=== PATIENT | male | born 1965 | race Caucasian/White ===

== ENCOUNTER 2019-11-03 20:00 | Outpatient (CLI) | payer OTHER, SELFPAY | END 2019-11-03 20:01 | disposition home or self-care (01) | LOC: SLEEP 11-04 08:57 | PROVIDERS: Family Provider Family Medicine; PCP Family Medicine; Visit Provider Family Medicine | DX: G47.30 Sleep apnea, unspecified (principal) | CPT/HCPCS: 95810; 95811 ==

== ENCOUNTER 2020-04-03 08:50 | Emergency (ER) | payer OTHER, SELFPAY ==
[2020-04-03 08:53] VITALS: BP 156/96; PULSE 95; RESP 18; TEMP 37.4; O2SAT 95; BMI 33.3
--- NOTE | 2020-04-03 09:03 | XR_ITS ---
WS: [id number] CHEST XRAY TECHNIQUE: Portable chest. CLINICAL INFORMATION: fever COMPARISON: FINDINGS: Heart: Normal cardiac silhouette. Lungs: Lungs are clear. No consolidation or pleural effusion. Bones: Postoperative changes lower cervical spine. XR/XR chest 1V portable [id number] IMPRESSION: No acute chest findings
[2020-04-03 09:06] VITALS: BP 165/106; PULSE 95; RESP 18; O2SAT 97
--- NOTE | 2020-04-03 09:13 | ED_ITS ---
HPI - Fever General: Chief Complaint: Fever Stated Complaint: Chills/body aches Time Seen by Provider: 04/03/20 09:06 History of Present Illness: HPI Narrative: Patient is a 54-year-old male who comes to the ED with body aches and chills. Symptoms started today when he woke up. Patient works at [email or web address] and states that they had a couple positive COVID-19 cases, but patient is unsure if he is had any known contact with those positive patients. Denies fever, chest pain, shortness of breath, cough, sore throat, ear pain, nasal drainage/congestion, abdominal pain, nausea/vomiting, bladder or bowel symptoms. Associated symptoms: Reports chills; Deny abdominal pain, flank pain, chest pain, diarrhea, dysuria, headache(s), nasal congestion, nausea or vomiting Review of Systems Const: Reports: chills and body aches; Denies: fever(s) or fatigue Eyes: Denies: change in vision or eye discomfort ENMT: Denies: throat pain, odynophagia, ear or mastoid pain, nasal discharge or nasal congestion Card: Denies: chest pain, palpitations, edema, swelling of feet/ankles, dyspnea on exertion or orthopnea Resp: Denies: dyspnea, productive cough or non-productive cough GI: Denies: abdominal pain, nausea, vomiting, diarrhea, constipation or hematochezia : Denies: flank pain, difficulty urinating, dysuria or hematuria Musc: Denies: neck pain, back pain or extremity swelling Skin/Breast: Denies: rash or new lesions Neuro: Denies: headache(s), numbness in extremities or weakness in extremities Physical Exam Const: COMMON NORMALS: no acute distress, patient oriented x3, healthy appearing and alert GENERAL APPEARANCE: cooperative and comfortable HENMT: COMMON NORMALS: normocephalic HEAD & SCALP: normocephalic MOUTH: Normal oral and palatal mucosa present THROAT: posterior oropharynx normal and uvula midline Neck/C-Spine: COMMON NORMALS: supple GENERAL: Yes normal visual inspection Resp: COMMON NORMALS: normal respiratory effort, No retractions, No use of accessory muscles and clear to auscultation bilaterally AUSCULTATION: clear to auscultation bilaterally Cardio: COMMON NORMALS: regular rate, regular rhythm, S1 normal heart sound present, S2 normal heart sound present, No gallops present (Cardio), No clicks present (Cardio), No murmurs present (Cardio) and Peripheral pulses 2+ throughout RATE: regular rate RHYTHM: regular rhythm HEART SOUNDS: S1 normal heart sound present and S2 normal heart sound present PERIPHERAL PULSES: Peripheral pulses 2+ throughout GI: COMMON NORMALS: Normal to inspection, nondistended, normoactive bowel sounds present, Soft to palpation, non-tender and no masses PALPATION: Yes Soft to palpation : COMMON NORMALS: Yes no CVA tenderness BLADDER/KIDNEY EXAM: Yes no CVA tenderness Back/Pelvis: COMMON NORMALS: no CVA tenderness Extremity: COMMON NORMALS: normal to inspection and no pedal edema Neuro: COMMON NORMALS: patient oriented x3 and moves all extremities SENSORIUM/ORIENTATION: Yes alert Skin: COMMON NORMALS: no rashes or lesions noted GENERAL SKIN EXAM: no r ashes or lesions noted and dry skin Course Vital Signs: Vital signs: Vital Signs Temperature 99.4 F 04/03/20 08:53 Pulse Rate 95 04/03/20 09:06 Respiratory Rate 18 04/03/20 09:06 Blood Pressure 165/106 04/03/20 09:06 Pulse Oximetry 97 04/03/20 09:06 MDM - Fever MDM Narrative: Medical decision making narrative: Patient is a 54-year-old male comes to the ED with body aches and chills. Patient works in [email or web address] and states that there have been some positive COVID cases there and he is unsure if he has had contact with any of them. Symptoms started this morning. Denies any cough, shortness of breath, sore throat, nasal drainage/congestion, ear pain, nausea vomiting, diarrhea. COVID testing was performed and the results ar e pending. Chest x-ray was normal showing no acute findings. Patient was discharged and told to self quarantine for the next 14 days, pending COVID-19 results. I told him that the hospital should be calling him in the next 3 to 4 days with COVID-19 test results and if he does not hear from the hospital in about 4 to 5 days he should call [facility] to inquire about testing results. Drink plenty of fluids and take Tylenol for fever. Follow-up with PCP in 14 days for reevaluation. Return to ED if symptoms worsen. Patient understood and agreed with plan. Lab Data: Attestation: I reviewed the patient's lab results. Imaging Data^: CXR: Attestation: I personally reviewed and interpreted this imaging study as follows: Radiologist's impression: [facility] [address] [place] [address] XRay Report Signed Patient: Abimael Ryan Unit #: [id number] : [id number] 97 Age/Sex: 54 / M ADM Date: 04/03/20 Loc: ER Room/Bed: Attending Dr: Ordering Provider/Ordering MD: Jair Lopez MD Date of Service: 04/03/20 Procedure(s): XR chest 1V portable [id number] Accession Number(s): [id number] Report Number: [id number] WS: [id number] CHEST XRAY TECHNIQUE: Portable chest. CLINICAL INFORMATION: fever COMPARISON: 5 ,018 FINDINGS: Heart: Normal cardiac silhouette. Lungs: Lungs are clear. No consolidation or pleural effusion. Bones: Postoperative changes lower cervical spine. XR/XR chest 1V portable [id number] IMPRESSION: No acute chest findings Dictated By: Patricio Ma MD Signed By: Patricio Ma MD Signed Date/Time: 04/03/20 1017 DD/ 1016 Discharge Plan Discharge Patient Disposition: Home, Self-Care Clinical Impression: Encounter for laboratory testing for COVID-19 virus, Viral syndrome, Chills (without fever), Generalized body aches Condition: Stable Discharge Orders: Discharge Order (Routine); Ordered 04/03/20 Ordered By: Gino Harp Referrals: Jose Salazar [Primary Care Provider] - Discharge Diet: Regular Discharge Activity: Increase activity as tolerated Patient Instructions: Viral Syndrome - Adult Activity Restrictions/Additional Instructions: Follow-up with medical provider as directed in 14 days for reevaluation. Self quarantine for the next 14 days, pending COVID-19 test results. You should hear from the hospital about [place] results in the next 3 to 4 days. If you do not hear from [facility] [place] 4 to 5 days please call hospital to check on results. Drink plenty of fluids and stay hydrated. Take Tylenol for fevers. Continue taking all home medications. Return to the ER or your medical provider if condition worsens. Please read and understand discharge instructions. If any questions, please ask. Stand Alone Forms: Work/School Release Discharge Date/Time: 04/03/20 10:38 Coding Level of Care Code ED Nursing Home Administrator for Luz Fwd Exam Comprehensive
[2020-04-03] MEDS: acetaminophen 500 mg Tablet 1000 MG PO (09:19)
--- NOTE | 2020-04-03 09:39 | PC.NURSE ---
Pt was swabbed for COVID. Proper isolation precautions were implemented.
[2020-04-03 10:37] VITALS: BP 135/84; PULSE 90; RESP 14; O2SAT 98
[2020-04-06 04:56] LABS: Quest SARS-CoV-2 RNA NOT DETECTED (NOT DETECTED)
--- NOTE | 2020-04-06 12:56 | PC.NURSE ---
Pt called and notified of negative COVID test.
== END 2020-04-03 10:38 | disposition home or self-care (01) ==
PROVIDERS: Emergency Medicine; Emergency Provider Physician Assistant; PCP Family Medicine
DX: B34.9 Viral infection, unspecified (principal); R68.83 Chills (without fever); R52 Pain, unspecified
CPT/HCPCS: 12345; 71045; 87635; 99282; 99283

== ENCOUNTER → 2022-09-11 09:11 | Outpatient (BNVA) | payer OTHER, SELFPAY | PROVIDERS: PCP Family Medicine; Referring Provider Family Medicine; Visit Provider Specialist | DX: M25.561 Pain in right knee (principal) | CPT/HCPCS: 73560; 73565; 99204 ==

== ENCOUNTER 2022-11-05 10:43 | Outpatient (CLI) | payer OTHER, SELFPAY ==
--- NOTE | 2022-11-05 11:00 | MR_ITS ---
WS: [id number] MRI RIGHT KNEE NONCONTRAST TECHNIQUE: Axial PD, coronal PD fat sat, coronal PD, sagittal PD, and sagittal PD fat-sat images obta ined. CLINICAL INFORMATION: pain COMPARISON: None. FINDINGS: Distal quadriceps and patella tendons are intact. ACL and PCL appear intact. Advanced joint space gisel rowing medial joint compartment with complex high-grade medial meniscal tear. Peripheral extrusion of the medial meniscus. Fluid deep to the medial collateral ligament which appears intact. Small suprapatellar effusion. Moderate chondromalacia patella. Medial and lateral patellar retinacula appear intact. Lateral meniscus appears intact. Complex tear involving the medial meniscus with complex horizontal t ear with peripheral extrusion. Blunting of the posterior horn. Tear extends to the peripheral articul ar surface and meniscal root. MR/MR knee RT wo con* [id number] IMPRESSION: 1. ACL and PCL appear intact. 2. Complex high-grade tear involving the medial meniscus extending to the julieth phery and meniscal root with peripheral extrusion. This results in moderate to advanced narrowing medial joint compartment. 3. Small joint effusion. Fluid deep to the medial collateral ligament which ap pears intact. 4. Lateral meniscus is better preserved. 5. Lateral collateral ligament and popliteus appear intact. 6. Moderate chondromalacia patella. No subchondral edema. 7. No other acute findings. Outbridge grading: grade III: partial-thickness cartilage loss with focal ulcer ation
== END 2022-11-05 10:44 | disposition home or self-care (01) ==
LOC: RAD 10:43
PROVIDERS: PCP Family Medicine; Visit Provider Specialist
DX: M25.561 Pain in right knee (principal); M22.41 Chondromalacia patellae, right knee; M25.461 Effusion, right knee
CPT/HCPCS: 73721

== ENCOUNTER 2023-01-06 08:29 | Emergency (ER) | payer OTHER, SELFPAY ==
[2023-01-06 08:50] VITALS: BP 177/99; PULSE 82; TEMP 36.4; O2SAT 96; BMI 34.0
[2023-01-06 09:57] LABS: Basophils # 0.1 10^3/uL (0.0-0.1); Basophils % 0.7 %; Eosinophils # 0.1 10^3/uL (0.0-0.8); Eosinophils % 0.6 %; Hematocrit 45.3 % (42.0-52.0); Hemoglobin 14.6 g/dL (11.7-16.6); Lymphocytes # 2.3 10^3/uL (0.8-4.8); Lymphocytes % 27.8 %; Mean Corpuscular HGB Conc 32.2 g/dL (30.0-36.0); Mean Corpuscular Hemoglobin 27.6 pg (28.0-34.0); Mean Corpuscular Volume 85.6 fl (80-94); Mean Platelet Volume 10.6 fL (7.4-10.4); Monocytes # 0.5 10^3/uL (0.2-0.9); Monocytes % 5.7 %; Neutrophils # 5.33 10^3/uL (1.8-7.7); Neutrophils % 64.4 %; Nucleated Red Blood Cells % 0 %; Platelet Count 224 10^3/cmm (130-400); Red Blood Count 5.29 10^6/uL (4.1-5.3); Red Cell Distribution Width 13.4 % (12.1-15.1); White Blood Count 8.3 10^3/uL (4.0-10.0)
[2023-01-06 10:18] LABS: Alanine Aminotransferase 16 U/L (0-41); Albumin Level 4.4 g/dL (3.5-5.2); Alkaline Phosphatase 72 U/L (40-130); Anion Gap 12.2 (5-19); Aspartate Amino Transferase 14 U/L (0-40); Blood Urea Nitrogen 13 mg/dL (6-20); Calcium 8.5 mg/dL (8.5-10.5); Carbon Dioxide 25 mmol/L (22-29); Chloride 103 mmol/L (98-107); Globulin 2.8 g/dL (1.3-4.6); Glomerular Filtration Rate 86.7 mL/min (90-130); Glucose 96 mg/dL (65-115); Lipase 24 U/L (13-60); Osmolality Calculated 282 mOsm/kg (285-295); Potassium 4.2 mmol/L (3.5-5.1); Sodium 136 mmol/L (136-145); Total Bilirubin 0.4 mg/dL (0.15-1.2); Total Protein 7.2 g/dL (6.6-8.7)
--- NOTE | 2023-01-06 13:01 | ED_ITS ---
HPI - Abdominal Pain General: Chief Complaint: Abdominal Pain Stated Complaint: [facility] Time Seen by Provider: 01/06/23 12:56 History of Present Illness: 57-year-old gentleman presenting due to right flank pain. Onset of symptoms was a number of days ago without known specific provoking event. Symptoms are constant. No testicular or penile pain. Moderate intensity. No other specific changes in health, exacerbating, or alleviating factors identified. Onset (ago): day(s) Pain Consistency: constant Location: R flank Severity: mild Quality: aching and sharp Exacerbating factors: nothing Relieving factors: nothing Associated Symptoms: Reports no associated symptoms Review of Systems General: Reports: 10 or more systems reviewed and unremarkable except in HPI and below PFSH ED PFSH: Medical History (Updated 01/09/23 @ 22:52 by Andrzej Nunez MD) History of kidney stones Surgical History (Updated 01/09/23 @ 22:52 by Andrzej Nunez MD) No significant past surgical history Physical Exam Const: COMMON NORMALS: alert GENERAL APPEARANCE: cooperative and well developed HENMT: COMMON NORMALS: normocephalic and atraumatic HEAD & SCALP: normocephalic and atraumatic THROAT: posterior oropharynx normal Eye: COMMON NORMALS: conjunctivae normal CONJUNCTIVA: Yes conjunctivae normal SCLERA: sclerae normal Neck/C-Spine: COMMON NORMALS: supple GENERAL: Yes trachea midline Resp: COMMON NORMALS: clear to auscultation bilaterally EFFORT & INSPECTION: Yes able to speak in complete sentences AUSCULTATION: clear to auscultation bilaterally Cardio: COMMON NORMALS: regular rate and regular rhythm RATE: regular rate RHYTHM: regular rhythm GI: COMMON NORMALS: Soft to palpation PALPATION: Yes Soft to palpation, Yes Tenderness to palpation present (GI), No Guarding due to palpation present (GI) and No Rigid due to palpation Extremity: GENERAL: Yes normal exam except as noted and No edema Neuro: COMMON NORMALS: moves all extremities SENSORIUM/ORIENTATION: Yes alert and No Orientation impaired Psych: COMMON NORMALS: mental status grossly normal and Normal thought process present THOUGHT PROCESS: Normal thought process present Course Vital Signs: Vital signs: Vital Signs Temperature 97.5 F L 01/06/23 08:50 Pulse Rate 80 01/06/23 13:06 Respiratory Rate 19 H 01/06/23 13:06 Blood Pressure 172/94 01/06/23 13:06 Pulse Oximetry 95 01/06/23 13:06 Oxygen Delivery Me thod Room Air 01/06/23 13:06 MDM - Abdominal Pain Medical Decision Making 57-year-old gentleman for abdominal pain. Exam as above. Nontoxic. No evidence of acute surgical abdomen. Labs with no significant hematologic or metabolic abnormality. Urinalysis unremarkable. CT demonstrates no acute finding with exception of constipation. Symptoms are not consistent with appendicitis. Patient improved on reassessment. Nonspecific abdominal pain which may be secondary to constipation The results of ED evaluation were discussed with the patient including prescriptions and/or symptomatic cares (if applicable) including appropriate and responsible use, followup plan, and return precautions. The patient verbalized understanding and felt safe for discharge. Medical Records I reviewed the patient's medical records. Lab Data I reviewed the patient's lab results. 01/06/23 09:30 01/06/23 09:30 Labs/Radiology: Radiology Impressions Abdomen/Pelvis CT 01/06/23 13:18 IMPRESSION: 1. No acute abdominal or pelvic abnormalities are identified. 2. The appendix is top normal size with no adjacent inflammation. The appendix as increased in size since 2008 but this may be physiologic. At this time there are no changes to suggest acute appendicitis. 3. Marked constipation. Largest amount of fecal burden RIGHT lower quadrant. 4. No renal obstruction. Laboratory Results WBC 8.3 10^3/uL (4.0-10.0) 01/06/23 09:30 RBC 5.29 10^6/uL (4.1-5.3) 01/06/23 09:30 Hgb 14.6 g/dL (11.7-16.6) 01/06/23 09:30 Hct 45.3 % (42.0-52.0) 01/06/23 09:30 MCV 85.6 fl (80-94) 01/06/23 09:30 MCH 27.6 pg (28.0-34.0) L 01/06/23 09:30 MCHC 32.2 g/dL (30.0-36.0) 01/06/23 09:30 RDW 13.4 % (12.1-15.1) 01/06/23 09:30 Plt Count 224 10^3/cmm (130-400) 01/06/23 09:30 MPV 10.6 fL (7.4-10.4) H 01/06/23 09:30 Neut % (Auto) 64.4 % 01/06/23 09:30 Lymph % (Auto) 27.8 % 01/06/23 09:30 [place] % (Auto) 5.7 % 01/06/23 09:30 Eos % (Auto) 0.6 % 01/06/23 09:30 Baso % (Auto) 0.7 % 01/06/23 09:30 Neut # (Auto) 5.33 10^3/uL (1.8-7.7) 01/06/23 09:30 Lymph # (Auto) 2.3 10^3/uL (0.8-4.8) 01/06/23 09:30 [place] # (Auto) 0.5 10^3/uL (0.2-0.9) 01/06/23 09:30 Eos # (Auto) 0.1 10^3/uL (0.0-0.8) 01/06/23 09:30 Baso # (Auto) 0.1 10^3/uL (0.0-0.1) 01/06/23 09:30 Nucleated RBC % (auto) 0 % 01/06/23 09:30 Nucleated RBCs # 0.0 /100WBC 01/06/23 09:30 Sodium 136 mmol/L (136-145) 01/06/23 09:30 Potassium 4.2 mmol/L (3.5-5.1) 01/06/23 09:30 Chloride 103 mmol/L (98-107) 01/06/23 09:30 Carbon Dioxide 25 mmol/L (22-29) 01/06/23 09:30 Anion Gap 12.2 (5-19) 01/06/23 09:30 BUN 13 mg/dL (6-20) 01/06/23 09:30 Creatinine 0.9 mg/dL (0.7-1.2) 01/06/23 09:30 GFR Calculation 86.7 mL/min (90-130) L 01/06/23 09:30 Glucose 96 mg/dL (65-115) 01/06/23 09:30 Calculated Osmolality 282 mOsm/kg (285-295) L 01/06/23 09:30 Calcium 8.5 mg/dL (8.5-10.5) 01/06/23 09:30 Total Bilirubin 0.4 mg/dL (0.15-1.2) 01/06/23 09:30 AST 14 U/L (0-40) 01/06/23 09:30 ALT 16 U/L (0-41) 01/06/23 09:30 Alkaline Phosphatase 72 U/L (40-130) 01/06/23 09:30 Total Protein 7.2 g/dL (6.6-8.7) 01/06/23 09:30 Albumin 4.4 g/dL (3.5-5.2) 01/06/23 09:30 Globulin 2.8 g/dL (1.3-4.6) 01/06/23 09:30 Lipase 24 U/L (13-60) 01/06/23 09:30 Urine Color Yellow (Yellow) 01/06/23 13:00 Urine Appearance Clear (CLEAR) 01/06/23 13:00 Urine pH 6.5 (5-7) 01/06/23 13:00 Ur Specific [place] 1.015 (1.005-1.030) 01/06/23 13:00 Urine Protein Neg (Negative) 01/06/23 13:00 Urine Glucose (UA) Norm (Normal) 01/06/23 13:00 Urine Ketones Negative (Negative) 01/06/23 13:00 Urine Blood Neg (Negative) 01/06/23 13:00 Urine Nitrate Negative (Negative) 01/06/23 13:00 Urine Bilirubin Neg (Negative) 01/06/23 13:00 Urine Urobilinogen Norm mg/dL (Negative) 01/06/23 13:00 Ur Leukocyte Esterase Negative (Negative) 01/06/23 13:00 Discharge Plan Discharge Patient Disposition: Home Clinical Impression: Acute flank pain Condition: Stable Prescriptions: No Action cyclobenzaprine 10 mg tablet 10 mg PO TID diclofenac potassium 50 mg tablet 50 mg PO TID PRN hydrochlorothiazide 25 mg tablet 25 mg PO DAILY lisinopril 40 mg tablet 40 mg PO DAILY sildenafil 100 mg tablet 100 mg PO DAILY PRN Rx Instructions: administer 30 minutes to 4 hours before activity Discharge Orders: Discharge ED (Routine); Ordered 01/06/23 Ordered By: Andrzej Nunez Referrals: Marichuy Aparicio MD [Primary Care Provider] - Discharge Diet: Usual diet Discharge Activity: Increase activity as tolerated Patient Instructions: Constipation (ED), Flank Pain (ED) Activity Restrictions/Additional Instructions: Thank you for visiting the emergency department. You were seen in department for flank pain. The exact cause of your symptoms is unclear though does not need hospitalization at this time. I recommended continued symptom management. Please ensure that you are staying hydrated. You do have constipation, I recommend MiraLAX or other over-the- counter medication for applesauce consistency stools multiple times per day. You may use [id number] medications such as acetaminophen and ibuprofen for pain however please do not exceed the daily recommended dosage as listed on the packaging and please keep in mind that many namebrand medications contain the same active ingredients. Please avoid these medications if previously instructed to do so by another physician due to other underlying medical condition. Return to the emergency department for uncontrolled symptoms or anything else that you are concerned about and feel needs emergency department evaluation. Coding Level of Care Code ED Rocket Engine Component Mechanic for Luz Levy
[2023-01-06 13:06] VITALS: BP 172/94; PULSE 80; RESP 19; O2SAT 95
[2023-01-06 13:12] LABS: Add Urine Microscopic? NO; Charge for UA Resulting for Rev
[2023-01-06 13:14] LABS: Bilirubin Urine Neg (Negative); Blood Urine Neg (Negative); Glucose Urine UA Norm (Normal); Ketones Urine Negative (Negative); Leukocyte Esterase Urine Negative (Negative); Nitrate Urine Negative (Negative); Protein Urine Neg (Negative); Specific Gravity, Urine 1.015 (1.005-1.030); Urine Appearance Clear (CLEAR); Urine Color Yellow (Yellow); Urobilinogen Urine Norm (Negative); pH Urine 6.5 (5-7)
--- NOTE | 2023-01-06 13:18 | CT_ITS ---
WS: [id number] CT ABDOMEN AND PELVIS WITH CONTRAST HISTORY: R flank pain TECHNIQUE: Imaging performed of the abdomen and pelvis with IV contrast. Single phase imaging of the abdomen. Coronal and sagittal reformats are submitted. All CT scans at [facility] use at [address] one of these dose optimization techniques: automated exposure control; mA and/or kV adjustment per patient size (includes targeted exams where dose is matched to clinical indication); or iterative re construction. IV CONTRAST: Omnipaque 350; 100 mL IV. Oral contrast: No DLP: 1010.70 mGy.cm COMPARISON: 10/24/2008 Lower thorax: Lung bases are clear. Heart is normal size. Small hiatal hernia. Liver/biliary system: Normal size with no intrahepatic dilatation. Gallbladder: Normal. No gallstones or wall thickening. No pericholecystic fluid. Pancreas: Normal size pancreas and pancreatic duct. No adjacent inflammation. Spleen: Normal size spleen. No mass or infarct. Adrenal glands: Normal. Right kidney: Normal size kidney with no obstruction. 7 mm cyst posterior mid kidney. No ureteral obs truction or calcification. Left kidney: Normal kidney. Cortical cyst upper pole measures 8 mm. No obstruction. No ureteral calci fication. Aorta: Normal. Lymphadenopathy: None. Free fluid: None. GI tract: Normally distended stomach. No small bowel obstruction. Tortuous overlapping loops of colon with constipation. The appendix is identified. The appendix is top normal size measuring 6 to 7 mm w ithout significant adjacent inflammation. The appendix has increased in size from only a few millimet ers on the prior study. Abdominal wall: Fat containing umbilical hernia. Pelvis: No free fluid or adenopathy within the pelvis. Bones: Unremarkable. CT/CT abdomen pelvis w con* [id number] IMPRESSION: 1. No acute abdominal or pelvic abnormalities are identified. 2. The appendix is top normal size with no adjacent inflammation. The appendix as increased in size since 2008 but this may be physiologic. At this time ther e are no changes to suggest acute appendicitis. 3. Marked constipation. Largest amount of fecal burden RIGHT lower quadrant. 4. No renal obstruction.
[2023-01-06] MEDS: iohexol 350 mg/mL 500 mL Btl (per mL) IV (13:34)
== END 2023-01-06 14:43 | disposition home or self-care (01) ==
PROVIDERS: Family Medicine; Emergency Provider Emergency Medicine; PCP Family Medicine
DX: R10.9 Unspecified abdominal pain (principal); K59.00 Constipation, unspecified
CPT/HCPCS: 36415; 74177; 80053; 81003; 83690; 85025; 99285; Q9967

== ENCOUNTER → 2023-03-03 16:01 | Outpatient (BNVA) | payer OTHER, SELFPAY | PROVIDERS: PCP Family Medicine; Visit Provider Specialist | DX: M23.91 Unspecified internal derangement of right knee (principal); M25.861 Other specified joint disorders, right knee; M25.761 Osteophyte, right knee; S83.231A Complex tear of medial meniscus, current injury, right knee, initial encounter; X58.XXXA Exposure to other specified factors, initial encounter; M17.11 Unilateral primary osteoarthritis, right knee | CPT/HCPCS: 20610; 73560; 73565; 99214; J7326 ==

== ENCOUNTER → 2024-03-01 15:46 | Outpatient (BNVA) | payer OTHER, SELFPAY | PROVIDERS: PCP Family Medicine; Visit Provider Specialist | DX: M17.11 Unilateral primary osteoarthritis, right knee | CPT/HCPCS: 20610; 73560; 73565; 99214; J7326 ==

== ENCOUNTER → 2024-11-17 09:56 | Outpatient (BNVA) | payer OTHER, SELFPAY | PROVIDERS: PCP Family Medicine; Visit Provider Specialist | DX: M19.011 Primary osteoarthritis, right shoulder (principal); M19.012 Primary osteoarthritis, left shoulder; M25.811 Other specified joint disorders, right shoulder | CPT/HCPCS: 73030; 99204 ==

== ENCOUNTER 2024-12-02 15:42 | Outpatient (CLI) | payer OTHER, SELFPAY ==
--- NOTE | 2024-12-02 16:00 | MR_ITS ---
WS: [id number] MRI RIGHT SHOULDER NONCONTRAST TECHNIQUE: Sagittal T2, coronal T1, T2 and proton density imaging. Axial gradient PDE imaging. CLINICAL INFORMATION: right shoulder pain COMPARISON: None. FINDINGS: Advanced degenerative arthritis at the AC joint with downsloping of the acromion. Subacromial spurring. Impingement distal supraspinatus. Small intrasubstance bursal surface tear deep to the acromial spur supraspinatus. Degenerative cystic change involving the greater tuberosity. Normal infraspinatus. Normal teres minor. Normal subscapularis. Normal biceps tendon in the bicipital groove. Intra-articular biceps tendon appears intact. MR/MR shoulder RT wo con* [id number] IMPRESSION: 1. Advanced degenerative arthritis AC joint with fluid and edema. Subacromial spurring with impingement distal supraspinatus. 2. Longitudinal bursal surface tear supraspinatus deep to the acromial spurrin g. 3. Rotator cuff is otherwise intact. 4. Biceps tendon appears intact within the bicipital groove. Intra-articular b iceps tendon appears intact. 5. Advanced degenerative narrowing of the glenohumeral articulation.
== END 2024-12-02 15:43 | disposition home or self-care (01) ==
LOC: RAD 15:45
PROVIDERS: PCP Family Medicine; Visit Provider Specialist
DX: M19.011 Primary osteoarthritis, right shoulder (principal); M25.811 Other specified joint disorders, right shoulder; M75.41 Impingement syndrome of right shoulder; M75.101 Unspecified rotator cuff tear or rupture of right shoulder, not specified as traumatic; R93.6 Abnormal findings on diagnostic imaging of limbs
CPT/HCPCS: 73221

== ENCOUNTER → 2024-12-03 08:50 | Outpatient (BNVA) | payer OTHER, SELFPAY | PROVIDERS: PCP Family Medicine; Visit Provider Specialist | DX: M17.11 Unilateral primary osteoarthritis, right knee (principal); M23.91 Unspecified internal derangement of right knee | CPT/HCPCS: 20610; J7326 ==

== ENCOUNTER → 2024-12-13 16:25 | Outpatient (BNVA) | payer OTHER, SELFPAY | PROVIDERS: PCP Family Medicine; Visit Provider Specialist | DX: Z01.818 Encounter for other preprocedural examination (principal) | CPT/HCPCS: 36415; 80053; 81001; 85025 ==

== ENCOUNTER → 2025-01-11 11:03 | Day surgery (SDC) | payer OTHER, SELFPAY ==
[2025-01-11] VITALS (14 sets, daily range): BP systolic 113–140; BP diastolic 71–84; PULSE 71–85; RESP 10–22; TEMP 36.4–36.6; O2SAT 91–96; BMI 33.7
--- NOTE | 2025-01-11 11:25 | ANES.PREANE2 ---
Pre-Anesthetic Assessment Height/Weight: Height 6 ft 2 in Weight 263 lb Preop Diagnosis: Shoulder pain Operation Date: 01/11/25 13:25 Proposed Procedures p Right Distal Clavicle Resection(Right) - Shell Salamanca MD s Right Shoulder Acromioplasty(Right) - Shell Salamanca MD s Debridement Upper Extremity(Right) - Shell Salamanca MD Was Beta Miller taken within 24 hours: N/A Was Clonidine taken within 24 hours: N/A Social No alcohol and No tobacco Exam alert, oriented x 3, clear to auscultation bilaterally and regular rate & rhythm Airway Submandibular: within normal limits Cervical ROM: within normal limits Mallampati: Class II Dentition: false Anesthetic Plan ASA status: 2 Anesthesia: General and Regional (specify below) Other: No prior issues with anesthesia NPO since yesterday evening History of SUJIT on CPAP History of hypertension on lisinopril and hydrochlorothiazide Labs reviewed acceptable for procedure METs greater than 4 Plan for general anesthesia with preop nerve block Medications/Allergies Home Medications ?Medication ?Instructions ?Recorded ?Confirmed ?Last Taken ?Type hydrochlorothiazide 25 mg tablet 25 mg PO DAILY 09/11/22 01/10/25 01/10/25 History lisinopril 40 mg tablet 40 mg PO DAILY 09/11/22 01/10/25 01/10/25 History cholecalciferol (vitamin D3) 25 25 mcg PO DAILY 01/04/25 01/10/25 01/10/25 History mcg (1,000 unit) capsule meloxicam 15 mg tablet 15 mg PO DAILY 01/04/25 01/10/25 01/04/25 History pantoprazole 20 mg tablet,delayed 20 mg PO DAILY 01/04/25 01/10/25 01/10/25 History release oregano oil 50 mg-flaxseed oil 25 1 cap PO DAILY 01/10/25 01/10/25 01/10/25 History mg capsule shilajit 250 mg capsule 750 mg PO DAILY 01/10/25 01/10/25 01/10/25 History Allergies Allergy/AdvReac Type Severity Reaction Status Date / Time No Known Allergies Allergy Verified 01/11/25 11:22 [facility] Anesthesia Medical History History of kidney stones Surgical History No significant past surgical history Social History Smoking and tobacco/nicotine status: never used tobacco/nicotine Data Anesthesia Cardiac Studies: No Data to Display
[2025-01-11] MEDS: acetaminophen 1,000 MG/100 ML PIGGYBACK 400 MG IV (11:43)
[2025-01-11] MEDS: CELEcoxib 200 mg Capsule 400 MG PO (11:47)
[2025-01-11] MEDS: gabapentin 300 mg Capsule PO (11:47)
[2025-01-11] MEDS: sodium chloride 0.9% 1,000 ML 30 ML IV (11:50)
--- NOTE | 2025-01-11 12:40 | SUR.PREOP ---
SUPERFICIAL CERVICAL PLEXUS BLOCK AND INTERSCALENE NERVE BLOCK PERFORMED BY DOCTOR LIN, USING 30 ML OF 0.5% ROPIVACAINE AND DECADRON 4 MG. PT MEDICATED BY ANESTHESIA PRIOR TO PROCEDURE. PT ON LIFE SKILLS COORDINATOR SHOWING NSR AND O2 AT 4 ML VIA NASAL CANNULA. PT TOLERATED PROCEDURE WELL.
--- NOTE | 2025-01-11 12:41 | ANES.PROC ---
Anesthesia Procedures Procedure/Date: 01/11/25 Nerve Block ^: Nerve Block 1: Main Anesthesia: other (100mcg fentanyl, 2mg versed) Time Out Performed: Yes Consent: requested by attending/covering physician and from patient Nerve block location: interscalene Anesthesia monitors applied: pulse oximetry, EKG, BP cuff and oxygen Nerve block position: supine Anesthetic Used: ropivicaine 0.5% Amount of anesthesia used (mL): 20 Ultrasound used to: recognize landmarks Nerve Stimulator Used?: Yes Interscalene/Femoral BLK: other needle (pjunk 4inch) Injection: neg aspiration of heme Patient Tolerated Procedure: well Complications: none Additional Comments: decadron 4mg added to block Nerve Block 2: Time Out Performed: Yes Consent: requested by attending/covering physician and from patient Nerve block location: other (superficial cervical plexus block) Anesthesia monitors applied: pulse oximetry, EKG, BP cuff and oxygen Nerve block position: supine Anesthetic Used: ropivicaine 0.5% Amount of anesthesia used (mL): 10 Ultrasound used to: recognize landmarks Nerve Stimulator Used?: Yes Interscalene/Femoral BLK: other needle (pjunk 4inch) Injection: neg aspiration of heme Patient Tolerated Procedure: well Complications: none
--- NOTE | 2025-01-11 12:45 | P.HPUD_ITS ---
Surgery/Procedure H&P Update DATE OF PROCEDURE: January 12, 2025 DATE H&P PERFORMED: 01/04/25 H&P UPDATE INFORMATION: I have reviewed H&P completed within last 30 days, I have examined patient prior to procedure, No changes to prior documentation, H&P is in [facility] EMR on date indicated and Risks and benefits of the procedure reviewed PREOP DIAGNOSIS: Shoulder pain PLANNED PROCEDURE: Operation Date: 01/11/25 13:25 Proposed Procedures p Right Distal Clavicle Resection(Right) - Shell Salamanca MD s Right Shoulder Acromioplasty(Right) - Shell Salamanca MD s Debridement Upper Extremity(Right) - Sehll Salamanca MD Related Problem List Diagnoses (1) Impingement of right shoulder: (2) Osteoarthritis of right acromioclavicular joint: (3) Tendinopathy of right shoulder:
[2025-01-11] MEDS: ceFAZolin 2,000 mg SDV 2000 MG IVP (13:05)
[2025-01-11] MEDS: ceFAZolin 1,000 mg SDV 1000 MG IRRIGATION (13:57)
--- NOTE | 2025-01-11 15:10 | PM.OP ---
Operative Report Date of procedure: January 11, 2025 Pre-op diagnosis: Right shoulder impingement with acromioclavicular joint osteoarthritis and bursitis. Post-op diagnosis: Right shoulder impingement with severe acromioclavicular osteoarthritis, bursitis, and bursal surface tear of the supraspinatus tendon Post-op findings: Same as diagnosis Procedure done: Right shoulder acromioplasty with distal clavicle resection, bursectomy, and evaluation of rotator cuff Implants: None Specimens removed/disposition: None Pathology: None Surgeon: Shell Salamanca MD Insurance Sales Assistant: Ina Sanchez, nurse practitioner, who services were required for retraction, closure, positioning, and completion of the surgical procedure. Anesthesia: General (Intubated, ASA 2) Estimated blood loss (mL): 5 IV fluids (mL): 800 Urine output (mL): 0 (No Stephens) Complications: None Findings: As outlined above Condition: stable Disposition: PACU Brief History: This 59-year-old gentleman presented with complaints of right shoulder pain. MRI demonstrated there was a bursal surface supraspinatus tear and severe impingement. There was also significant degenerative osteoarthritis of the acromioclavicular joint. After discussion in the office, the patient wished to proceed with operative intervention in the form of an acromioplasty with distal clavicle resection and bursectomy with evaluation of the rotator cuff. Risks and complications were discussed with him. Consents were signed and questions were answered in the office. Procedure: The patient was brought to the operating theater and underwent general intubated, ASA 2, anesthesia. The patient was placed in a beachchair position and subsequently the right upper extremity was prepped and draped in the usual fashion utilizing DuraPrep. The arm was draped free. A surgical pause was performed prior to commencement of the surgical procedure. At the time of the surgical pause, we confirmed the site and side of surgery as well as administration of appropriate preoperative antibiotics Ancef 2 g. MRI was also reviewed at that time. Following the surgical pause, an incision was made at approximately the level of the acromioclavicular joint extending across the anterolateral corner of the acromion and distally as necessary. Care was taken to avoid injury to the axillary nerve by limiting the distal extent of the incision. Dissection continued through skin and soft tissues using a scalpel. Hemostasis was obtained using electrocautery. Soft tissues were elevated off the acromion. Palpation of the area demonstrated that there was significant impingement even with distraction of the shoulder joint. An acromioplasty was then accomplished using a combination of a saw and a power rasp. With this, we were able to remove compression caused by the acromion. The rotator cuff was then evaluated to look for tears. There was some roughness to the rotator cuff visible following a bursectomy. Significant bursa was excised in order to view the rotator cuff, and in this way, the shoulder was debrided. There was no evidence of rotator cuff tear, but the bursal surface tear noted in the MRI was visualized. This was not a complete tear. The acromioclavicular joint was exposed. A saw was then used to resect the distal clavicle without difficulty. The undersurface of the clavicle was palpated and was slightly further debrided. A power rasp was used to further smooth the area. When this was felt to be adequately resected, the wound was irrigated. Attention was then directed to closure. The wound was irrigated and closure was accomplished with 0 Vicryl in the capsular tissues overlying the acromioclavicular joint area as well as over the acromion and down into the deltoid muscle. 2-0 Monocryl was used to close the subcutaneous tissues followed by 4-0 Monocryl subcuticular closure. This was followed by Dermabond, Steri-Strips, and OpSite. The patient was placed in a sling and was returned to the recovery room in satisfactory condition. The patient will be discharged to home to follow-up in the office as scheduled. There were no complications and no specimens. Related Problem List Diagnoses (1) Impingement of right shoulder: (2) Osteoarthritis of right acromioclavicular joint: (3) Bursitis of right shoulder: (4) Tendinopathy of right shoulder:
[2025-01-11] MEDS: fentaNYL 50 mcg/mL INJ 2mL IVP ×2 (15:13→15:22)
--- NOTE | 2025-01-11 16:23 | ANE.PACU2 ---
Inpatient post-anesthesia follow up: Airway intact: Yes Vital signs: Temperature 97.7 F Pulse Rate 80 Respiratory Rate 18 Blood Pressure 134/75 Pulse Oximetry 92 Oxygen Delivery Me thod Room Air Oxygen Flow Rate 4 Fraction of Inspir ed Oxygen Hydration adequate: Yes Nausea and vomiting: No Pain level: 1 Mental status: Baseline
== END | disposition home or self-care (01) ==
PROVIDERS: PCP Family Medicine; Visit Provider Specialist
PROC: (CPT 23120; principal; 2025-01-11 13:15)
PROC: (CPT 23130; 2025-01-11 13:15)
PROC: (CPT 23130; 2025-01-11 13:15)
DX: M75.41 Impingement syndrome of right shoulder (principal); M19.011 Primary osteoarthritis, right shoulder; M75.51 Bursitis of right shoulder; S46.011A Strain of muscle(s) and tendon(s) of the rotator cuff of right shoulder, initial encounter; G47.33 Obstructive sleep apnea (adult) (pediatric); I10 Essential (primary) hypertension; Z79.899 Other long term (current) drug therapy; X58.XXXA Exposure to other specified factors, initial encounter
CPT/HCPCS: 23130; 23120; J0131; J0690; J1100; J2371; J2405; J2704; J3010; J3490; J7030; J9999

== ENCOUNTER → 2025-01-24 09:46 | Outpatient (BNVA) | payer OTHER, SELFPAY | PROVIDERS: PCP Family Medicine; Visit Provider Nurse Practitioner | DX: Z98.890 Other specified postprocedural states (principal) | CPT/HCPCS: 99024 ==

== ENCOUNTER → 2025-02-21 15:02 | Outpatient (BNVA) | payer OTHER, SELFPAY | PROVIDERS: PCP Family Medicine; Visit Provider Nurse Practitioner | DX: Z98.890 Other specified postprocedural states (principal) | CPT/HCPCS: 99213 ==

== ENCOUNTER → 2025-06-10 08:41 | Outpatient (BNVA) | payer OTHER, SELFPAY | PROVIDERS: PCP Family Medicine; Visit Provider Specialist | DX: M17.11 Unilateral primary osteoarthritis, right knee (principal); M23.91 Unspecified internal derangement of right knee | CPT/HCPCS: 20610; J7326 ==